=== PATIENT | female | born 1995 | race Caucasian/White ===

== ENCOUNTER 2019-05-24 15:18 | Observation (INO) | payer OTHER ==
[2019-05-24] MEDS ORDERED: Iopamidol-370 76% 500 ML 1 ML ONE (15:20)
[2019-05-24 16:06] LABS: Bilirubin Negative (Negative); Blood, Urine Negative (Negative); Clarity Clear (Clear); Glucose, Urine (Dipstick) Normal (Negative); Leukocyte 75 Leu/uL (Negative); Nitrite Negative (Negative); Protein, Urine (Dipstick) Negative (Neg-Trace); RBC/HPF 0-3 HPF (0-3); Squamous Epithelial 0-3 HPF (0-3); Urobilinogen Normal mg/dL (Less than 2)
[2019-05-24 16:07] LABS: Bacteria/HPF 1+ HPF (None Seen)
[2019-05-24 16:38] LABS: #Eosinphils 0.1 thou/uL (0.0-0.7); #Monocytes 0.6 thou/uL (0.11-0.59); %Basophils 0.5 % (0.0-1.0); %Eosinophils 0.8 % (0.0-10.0); %Lymphocytes 29.9 % (21.0-51.0); %Monocytes 8.4 % (0.0-10.0); %Neutrophils 60.5 % (42.0-75.0); Hemoglobin 11.8 g/dL (12.0-16.0); Mean Corpuscular HGB CONC 31.6 g/dL (32.0-36.0); Mean Corpuscular Hemoglobin 21.4 pg (27.0-31.0); Mean Corpuscular Volume 67.6 fL (78.0-98.0); Mean Platelet Volume 9.3 fL (7.4-10.4); Platelet Count 293 thou/uL (130-400); RBC Distribution Width 14.8 % (11.5-14.5); Red Blood Cell (RBC) Count 5.53 mill/uL (4.20-5.40); White Blood Cell (WBC) Count 6.6 thou/uL (4.8-10.8)
[2019-05-24 16:55] LABS: Hypochromia SLIGHT = 6-15 cells (100X) (0-5/hpf); MDiff Complete? YES; Microcytosis MODERATE=15-30 cells (100X) (0-5/hpf); Ovalocytes SLIGHT = 2-5 cells (100X) (0-1/hpf); Platelet Morphology Comment Appears Adequate; Polychromasia SLIGHT = 2-3 cells (100X) (0-2/hpf); Schistocytes SLIGHT = 2-5 cells (100X) (0-1/hpf); Target Cells SLIGHT = 2-5 cells (100X) (0-1/hpf); Tear Drops SLIGHT = 2-5 cells (100X) (0-1/hpf)
[2019-05-24 16:56] LABS: ALT (SGPT) 11 U/L (8-55); AST (SGOT) 9 U/L (5-34); Albumin 4.2 g/dL (3.5-5.0); Alkaline Phosphatase 58 U/L (40-110); Anion Gap 14 mmol/L (10-20); BUN (Urea Nitrogen) 8 mg/dL (7.0-18.7); Bilirubin, Total 0.2 mg/dL (0.2-1.2); Calc. Creatinine Clearance 0 mL/min (70-130); Carbon Dioxide 24 mmol/L (22-29); Chloride 108 mmol/L (98-107); Estimated GFR-MDRD 84; Globulin 3.2 g/dL (2.4-3.5); Glucose 106 mg/dL (70-105); Lipase 18 U/L (8-78); Potassium 4.1 mmol/L (3.5-5.1); Protein, Total 7.4 g/dL (6.0-8.3); Sodium 142 mmol/L (136-145)
[2019-05-24] MEDS ORDERED: Morphine 4 MG/ML VIAL ONE ×2 (18:15→20:36)
[2019-05-24] MEDS ORDERED: Ketorolac Tromethamine 30 MG/ML VIAL ONE (18:15)
[2019-05-24 18:48] LABS: Pregnancy Test - Urine (BHCG) Negative (Negative); Pregu Control Background? CLEAR/WHITE (CLR/WHITE); Pregu Control Bar Appear? YES (CONTROL BAR); Specific Gravity 1.022 (1.002-1.036)
--- NOTE | 2019-05-24 19:20 | CT ---
CT OF THE ABDOMEN AND PELVIS WITH IV CONTRAST INDICATION: Right lower quadrant abdominal pain COMPARISON: None FINDINGS: ABDOMEN: Lung bases: Clear Liver: No focal lesion. Gallbladder: Normal appearing. Pancreas: Normal. Adrenal glands: Normal. Spleen: Normal. Kidneys and ureters: Normal. No hydronephrosis. Vasculature: Normal. Lymph nodes:No lymphadenopathy. Free fluid in abdomen:No free fluid is evident. PELVIS: Small and large bowel: Normal Appendix:Enlarged measuring 9 mm with periappendiceal fat stranding. No drainable fluid collection is evident. Bladder: Normal. Rectal and perirectal soft tissues:Normal. Reproductive structures: Normal. Free fluid in pelvis: No free fluid is evident. Lymphadenopathy pelvis: No lymphadenopathy is evident. Osseous structures: No acute osseous abnormality. No destructive osteolytic or osteoblastic lesion i s identified. Soft tissues:Normal. IMPRESSION: 1. Findings of noncomplicated acute appendicitis.
[2019-05-24] MEDS ORDERED: Meropenem 2 GM in Sodium Chloride 0.9% 100 ML IVPB SCH (20:45)
[2019-05-24] MEDS: Sodium Chloride 0.9% 1,000 ML IV SCH (22:39)
[2019-05-24 23:06] VITALS: BMI 41.8
[2019-05-24] MEDS ORDERED: Ondansetron PF 4 MG/2 ML Vial SLOW IVP PRN (23:12)
[2019-05-24] MEDS: Morphine 2 MG/ML SYRINGE SLOW IVP PRN (23:19)
[2019-05-25] MEDS: Sodium Chloride 0.9% 1,000 ML IV SCH ×2 (03:04→09:34)
[2019-05-25] MEDS: Morphine 2 MG/ML SYRINGE SLOW IVP PRN ×3 (03:05→09:32)
[2019-05-25] MEDS ORDERED: MEROPENEM 1 GM/50 ML 1 GM in Premix Bag 1 BAG IVPB SCH (05:00)
[2019-05-25] MEDS ORDERED: Meropenem 1 GM in Sodium Chloride 0.9% 100 ML IVPB SCH (05:00)
[2019-05-25] MEDS ORDERED: Ondansetron PF 4 MG/2 ML Vial ONE (10:58)
[2019-05-25] MEDS ORDERED: Glycopyrrolate 0.2 MG/ML 5 ML SYRINGE ONE (10:58)
[2019-05-25] MEDS ORDERED: Lidocaine 1% PF 5 ML VIAL ONE (10:58)
[2019-05-25] MEDS ORDERED: Ketorolac Tromethamine 30 MG/ML VIAL ONE (10:58)
[2019-05-25] MEDS ORDERED: Succinylcholine Chloride 20 MG/ML 10 ml SYRINGE FS ONE (10:58)
[2019-05-25] MEDS ORDERED: Dexamethasone 20 MG/5 ML VIAL ONE (10:58)
[2019-05-25] MEDS ORDERED: Rocuronium Bromide 10 MG/ML (10ML VIAL) ONE (10:58)
[2019-05-25] MEDS ORDERED: Midazolam HCl 2 mg/2 ml Vial ONE (12:36)
[2019-05-25] MEDS ORDERED: Scopolamine 1.5 mg/72 hour Patch ONE (12:36)
[2019-05-25] MEDS ORDERED: HYDROmorphone 0.5 MG/0.5 ML SYRINGE ONE (12:37)
[2019-05-25] MEDS ORDERED: Fentanyl 100 MCG/2 ML VIAL ONE ×3 (12:37→14:53)
--- NOTE | 2019-05-25 12:38 | PDOC.GSCN ---
Surgery Consult: HPI - Consult details Date: 05/25/19 Time: 12:37 Reason for consult: abdominal pain (Acute appendicitis) History of present illness: 05/25/19 12:37 24yo female with abdominal pain. The pain is located in the RLQ and characterized as sharp and constant. Associated with nausea and one episode of emesis Saturday night. Denies diarrhea, but endorses subjective fever last evening. Surgery Consult: ROS - Review of Systems All systems: 10 systems reviewed and no additional complaints unless stated below. Surgery Consult: PMH Past Medical History: Bipolar disorder Thallasemia trait Past Surgical History: None - Past Family History Family history: reviewed and not pertinent - Past Social History Smoking Status: Smoker, status unknown Alcohol Use: rarely Drug Use History: none Living Situation: independent Surgery Consult: Exam - Vital signs Vital signs: Vital Signs - Most Recent Temp Pulse Resp BP Pulse Ox 98.7 F 71 16 100/65 97 05/25/19 11:06 05/25/19 11:06 05/25/19 11:06 05/25/19 11:06 05/25/19 11:06 - Physical Exam General: no distress, obese Eye: normal ocular movement, PERRL ENT: normal mucosa, normal nares Neck: no lymphadectomy, no masses, no genet distention Respiratory: clear to auscultation Abdomen: soft, tender (Focal TTP RLQ with no rebound tenderness or signs of peritonitis) Hernia: none Integumentary: no abnormal pigmentation, no growths Neurologic: normal coordination, normal sensation Musculoskeletal: normal gait, normal posture Psychiatric: memory intact, oriented to time, oriented to person, oriented to place Surgery Consult: Meds - Medications Medications: Current Medications Morphine Sulfate (Morphine) 2 mg SLOW IVP Q3H PRN PRN Reason: Pain Last Admin: 05/25/19 09:32 Dose: 2 mg Ondansetron HCl (Zofran) 4 mg SLOW IVP Q6H PRN PRN Reason: Nausea/Vomiting Last Admin: 05/25/19 09:33 Dose: 4 mg - Allergies Allergies/Adverse Reactions: Allergies Allergy/AdvReac Type Severity Reaction Status Date / Time cefdinir [From Omnicef] Allergy Verified 05/25/19 02:21 ferrous sulfate Allergy Verified 05/25/19 02:21 Penicillins Allergy Verified 05/25/19 02:21 Surgery Consult: Results - Labs Result Diagrams: 05/24/19 16:28 05/24/19 16:28 Lab results: Laboratory Results WBC 6.6 thou/uL (4.8-10.8) 05/24/19 16:28 RBC 5.53 mill/uL (4.20-5.40) H 05/24/19 16:28 Hgb 11.8 g/dL (12.0-16.0) L 05/24/19 16:28 Hct 37.4 % (36.0-47.0) 05/24/19 16:28 MCV 67.6 fL (78.0-98.0) L 05/24/19 16:28 MCH 21.4 pg (27.0-31.0) L 05/24/19 16: MCHC 31.6 g/dL (32.0-36.0) L 05/24/19 16: RDW 14.8 % (11.5-14.5) H 05/24/19 16: Plt Count 293 thou/uL (130-400) 05/24/19 16:28 MPV 9.3 fL (7.4-10.4) 05/24/19 16:28 Neutrophils % 60.5 % (42.0-75.0) 05/24/19 16:28 Neutrophils % (Manual) Not Reportable 05/24/19 16:28 Lymphocytes % 29.9 % (21.0-51.0) 05/24/19 16:28 Monocytes % 8.4 % (0.0-10.0) 05/24/19 16:28 Eosinophils % 0.8 % (0.0-10.0) 05/24/19 16:28 Basophils % 0.5 % (0.0-1.0) 05/24/19 16:28 Neutrophils # 4.0 thou/uL (1.40-6.50) 05/24/19 16:28 Lymphocytes # 2.0 thou/uL (1.20-3.40) 05/24/19 16:28 Monocytes # 0.6 thou/uL (0.11-0.59) H 05/24/19 16:28 Eosinophils # 0.1 thou/uL (0.0-0.7) 05/24/19 16:28 Basophils # 0.0 thou/uL (0.0-0.2) 05/24/19 16:28 Hypochromia SLIGHT = 6-15 cells (100X) (0-5/hpf) 05/24/19 16:28 Plt Morphology Comment Appears Adequate 05/24/19 16:28 Polychromasia SLIGHT = 2-3 cells (100X) (0-2/hpf) 05/24/19 16:28 Microcytosis MODERATE=15-30 cells (100X) (0-5/hpf) H 05/24/19 16:28 Target Cells SLIGHT = 2-5 cells (100X) (0-1/hpf) 05/24/19 16:28 Tear Drop Cells SLIGHT = 2-5 cells (100X) (0-1/hpf) 05/24/19 16:28 Ovalocytes SLIGHT = 2-5 cells (100X) (0-1/hpf) 05/24/19 16:28 Schistocytes SLIGHT = 2-5 cells (100X) (0-1/hpf) 05/24/19 16:28 Sodium 142 mmol/L (136-145) 05/24/19 16:28 Potassium 4.1 mmol/L (3.5-5.1) 05/24/19 16:28 Chloride 108 mmol/L (98-107) H 05/24/19 16:28 Carbon Dioxide 24 mmol/L (22-29) 05/24/19 16:28 Anion Gap 14 mmol/L (10-20) 05/24/19 16:28 BUN 8 mg/dL (7.0-18.7) 05/24/19 16:28 Creatinine 0.84 mg/dL (0.6-1.1) 05/24/19 16:28 Estimated GFR (MDRD) 84 05/24/19 16:28 Glucose 106 mg/dL (70-105) H 05/24/19 16:28 Calcium 9.0 mg/dL (7.8-10.44) 05/24/19 16:28 Total Bilirubin 0.2 mg/dL (0.2-1.2) 05/24/19 16:28 AST 9 U/L (5-34) 05/24/19 16:28 ALT 11 U/L (8-55) 05/24/19 16:28 Alkaline Phosphatase 58 U/L (40-110) 05/24/19 16:28 Serum Total Protein 7.4 g/dL (6.0-8.3) 05/24/19 16:28 Albumin 4.2 g/dL (3.5-5.0) 05/24/19 16:28 Globulin 3.2 g/dL (2.4-3.5) 05/24/19 16:28 Albumin/Globulin Ratio 1.3 g/dL (1.2-2.2) 05/24/19 16:28 Lipase 18 U/L (8-78) 05/24/19 16:28 Urine Color Light-Yellow (Yellow) 05/24/19 15:27 Urine Clarity Clear (Clear) 05/24/19 15:27 Urine pH 7.0 (5.0-9.0) 05/24/19 15:27 Ur Specific [place] 1.022 (1.002-1.036) 05/24/19 18:43 Urine Protein Negative mg/dL (Neg-Trace) 05/24/19 15:27 Urine Glucose (UA) Normal mg/dL (Negative) 05/24/19 15:27 Urine Ketones Negative mg/dL (Negative) 05/24/19 15:27 Urine Blood Negative (Negative) 05/24/19 15:27 Urine Nitrite Negative (Negative) 05/24/19 15:27 Urine Bilirubin Negative (Negative) 05/24/19 15:27 Urine Urobilinogen Normal mg/dL (Less than 2) 05/24/19 15:27 Ur Leukocyte Esterase 75 Loren/uL (Negative) A 05/24/19 15:27 Urine RBC 0-3 HPF (0-3) 05/24/19 15:27 Urine WBC 11-20 HPF (0-3) A 05/24/19 15:27 Ur Squamous Epith Cells 0-3 HPF (0-3) 05/24/19 15:27 Urine Bacteria 1+ HPF (None Seen) A 05/24/19 15:27 Urine Test Negative (Negative) 05/24/19 18:43 - Radiology Interpretation CT scan - abdomen Additional comments: Demonstrates a dilated appendix with periappendiceal stranding c/w uncomplicated acute appendicitis. Surgery Consult: A/P - Problem (1) Acute appendicitis Current Visit: Yes Code(s): K35.80 - UNSPECIFIED ACUTE APPENDICITIS Status: Acute Qualifiers: Acute appendicitis type: with localized peritonitis Appendicitis gangrene presence: without gangrene Appendicitis perforation presence: without perforation Appendicitis abscess presence: without abscess Qualified Code(s) : K35.30 - Acute appendicitis with localized peritonitis, without perforation or gangrene - Plan Plan: Plan for laparoscopic appendectomy today. The risks and benefits have been discussed and informed consent obtained. Likely dc home this evening if dc criteria are met.
[2019-05-25] MEDS ORDERED: Acetaminophen/Codeine 30-300mg Tablet PO PRN (12:43)
[2019-05-25] MEDS ORDERED: Promethazine HCl 25 MG/ML VIAL SLOW IVP PRN (13:44)
[2019-05-25] MEDS ORDERED: Meperidine HCl/PF 25 MG/ML VIAL SLOW IVP PRN (13:44)
[2019-05-25] MEDS ORDERED: HYDROmorphone 2 MG/ML VIAL SLOW IVP PRN (13:44)
[2019-05-25] MEDS ORDERED: Bupivacaine 0.25% HCL 30 ML VIAL ONE (14:10)
--- NOTE | 2019-05-25 15:18 | OP ---
DATE OF PROCEDURE: 05/25/2019 PREOPERATIVE DIAGNOSIS: Acute appendicitis. POSTOPERATIVE DIAGNOSIS: Acute appendicitis. PROCEDURE PERFORMED: Laparoscopic appendectomy. INDICATION FOR PROCEDURE: This is a 24-year-old female with 1-day history of right lower quadrant pain. Her emergency department workup to include computed tomography of the abdomen, was consistent with acute appendicitis. After discussion of the relative risks and benefits of laparoscopic appendectomy, the patient agreed to proceed with surgery. PROCEDURE IN DETAIL: The patient was brought to the operating room and positioned supine on the operating room table. After induction of general, endotracheal anesthesia, the patient was prepared and draped in the usual fashion. Prior to beginning the procedure, a complete time-out was performed with all members of the operative team being present and in agreement. Access to the abdomen was obtained in the left upper quadrant using an optical trocar under direct visualization. The abdomen was insufflated and examined. There was inflammation noted in the right lower quadrant adjacent to the appendix. Additional trocars were placed under direct visualization. The appendix and the cecum were mobilized medially using blunt dissection with minimal electrocautery. The base of the appendix was identified with the confluence of the tenia. A window was made at the base of the appendix and the appendix was transected with a single fiber blue staple load. The mesoappendix was dissected and divided using a single fire of a white staple load. The specimen was placed in a specimen retrieval bag. The right lower quadrant was examined for hemostasis and hemostasis was achieved. The specimen was removed. The fascia was closed with a 0 Vicryl tie utilizing a Suture Passer. The skin was closed with 4-0 Monocryl and dressed with skin adhesive dressing. At conclusion of the case, all sponge and instrument counts were correct. SPECIMENS: Appendix. ESTIMATED BLOOD LOSS: Minimal. COMPLICATIONS: None. DISPOSITION: The patient was transported to the postoperative recovery unit to be returned to the floor after criteria were met. Job ID: [id number]
[2019-05-25 18:26] VITALS: BP 128/85; TEMP 97.7
[2019-05-26] MEDS ORDERED: Loratadine 10 MG TAB PO SCH (09:00)
[2019-05-26] MEDS ORDERED: LEVONORGESTREL ETHIN ESTRADIOL PO SCH (09:00)
--- NOTE | 2019-05-26 14:13 | DIS ---
DATE OF ADMISSION: 05/24/2019 DATE OF DISCHARGE: 05/25/2019 ADMISSION DIAGNOSIS: Acute appendicitis. DISCHARGE DIAGNOSIS: Acute appendicitis. PROCEDURES: Laparoscopic appendectomy. HOSPITAL COURSE: The patient presented to the emergency department on May 24, 2019 with right lower quadrant pain. Her emergency department workup was consistent with acute appendicitis. She was placed on observation and taken to the operating room the following day, where she underwent laparoscopic appendectomy. She tolerated the procedure well and was returned to the floor. While on the floor, her diet was advanced to regular, which she tolerated. Her pain was well controlled with oral analgesia only. She was ambulating independently and voiding spontaneously and was appropriate for discharge. DISCHARGE DISPOSITION: Home. CONDITION: Good. DISCHARGE MEDICATIONS: 1. Tylenol No. 3 one tablets p.o. every 6 hours as needed for pain. 2. Fexofenadine hydrochloride 100 mg p.o. daily (home medication). 3. control pills. 4. Sertraline 50 mg daily (home medication). Job ID: [id number]
== END 2019-05-25 18:50 | disposition home or self-care (01) ==
LOC: ERS 15:18 → SURG A 20:05 → INTOOBSV 20:05
PROVIDERS: ADMIT Surgery; ATTEND Surgery
PROC: 0DTJ4ZZ Resection of Appendix, Percutaneous Endoscopic Approach (ICD-10-PCS; principal; 2019-05-25)
DX: K35.30 Acute appendicitis with localized peritonitis, without perforation or gangrene (principal); F41.9 Anxiety disorder, unspecified; G89.29 Other chronic pain; M54.9 Dorsalgia, unspecified; F31.9 Bipolar disorder, unspecified; F17.200 Nicotine dependence, unspecified, uncomplicated; D56.3 Thalassemia minor; E66.9 Obesity, unspecified; Z68.41 Body mass index [BMI] 40.0-44.9, adult; Z79.899 Other long term (current) drug therapy; Z88.0 Allergy status to penicillin; Z88.1 Allergy status to other antibiotic agents; Z88.8 Allergy status to other drugs, medicaments and biological substances
CPT/HCPCS: 36415; 74177; 80053; 81003; 81015; 81025; 83690; 85025; 88304; 96361; 96365; 96375; 96376; J1100; J1170; J1885; J2001; J2185; J2250; J2270; J2405; J3010; J3490; Q9967; S0020

== ENCOUNTER → 2020-03-18 | Emergency (ER) | payer OTHER | LOC: ERS 19:21 | DX: Z53.21 Procedure and treatment not carried out due to patient leaving prior to being seen by health care provider (principal) ==

== ENCOUNTER 2021-04-12 10:38 | Emergency (ER) | payer OTHER ==
[2021-04-12 11:11] LABS: #Eosinphils 0.1 thou/uL (0.0-0.7); #Lymphocytes 2.3 thou/uL (1.20-3.40); #Monocytes 0.4 thou/uL (0.11-0.59); #Neutrophils 3.1 thou/uL (1.40-6.50); %Basophils 0.5 % (0.0-1.0); %Eosinophils 0.9 % (0.0-10.0); %Lymphocytes 39.8 % (21.0-51.0); %Monocytes 6.1 % (0.0-10.0); %Neutrophils 52.8 % (42.0-75.0); Hemoglobin 12.7 g/dL (12.0-16.0); Mean Corpuscular HGB CONC 32.9 g/dL (32.0-36.0); Mean Corpuscular Hemoglobin 23.2 pg (27.0-31.0); Mean Corpuscular Volume 70.5 fL (78.0-98.0); Mean Platelet Volume 7.5 fL (7.4-10.4); Platelet Count 282 thou/uL (130-400); RBC Distribution Width 13.7 % (11.5-14.5); Red Blood Cell (RBC) Count 5.47 mill/uL (4.20-5.40); White Blood Cell (WBC) Count 5.8 thou/uL (4.8-10.8)
[2021-04-12 11:27] LABS: ALT (SGPT) 17 U/L (8-55); AST (SGOT) 16 U/L (5-34); Albumin 4.3 g/dL (3.5-5.0); Alkaline Phosphatase 71 U/L (40-110); Anion Gap 12 mmol/L (10-20); BUN (Urea Nitrogen) 10 mg/dL (7.0-18.7); Bilirubin, Total 0.3 mg/dL (0.2-1.2); Calc. Creatinine Clearance 0 mL/min (70-130); Calcium 9.9 mg/dL (7.8-10.44); Carbon Dioxide 23 mmol/L (22-29); Chloride 108 mmol/L (98-107); Globulin 3.4 g/dL (2.4-3.5); Glucose 95 mg/dL (70-105); Lipase 41 U/L (8-78); Potassium 4.2 mmol/L (3.5-5.1); Protein, Total 7.7 g/dL (6.0-8.3); Sodium 139 mmol/L (136-145)
[2021-04-12 11:36] LABS: MDiff Complete? YES; Microcytosis MODERATE=15-30 cells (100X) (0-5/hpf); Platelet Morphology Comment Appears Adequate; Polychromasia SLIGHT = 2-3 cells (100X) (0-2/hpf)
[2021-04-12] MEDS ORDERED: Ondansetron PF 4 MG/2 ML Vial ONE (12:39)
[2021-04-12] MEDS ORDERED: Morphine 4 MG/ML VIAL ONE (12:39)
[2021-04-12 14:46] LABS: Bilirubin Negative (Negative); Blood, Urine Negative (Negative); Clarity Clear (Clear); Glucose, Urine (Dipstick) Normal (Negative); Ketone, Urine Negative (Negative); Leukocyte Negative Leu/uL (Negative); Nitrite Negative (Negative); Protein, Urine (Dipstick) Negative (Neg-Trace); Specific Gravity, Urine 1.019 (1.002-1.036); Urobilinogen Normal mg/dL (Less than 2)
[2021-04-12 14:52] LABS: Pregnancy Test - Urine (BHCG) Negative (Negative); Pregu Control Background? CLEAR/WHITE (CLR/WHITE); Pregu Control Bar Appear? YES (CONTROL BAR); Specific Gravity 1.019 (1.002-1.036)
== END 2021-04-12 16:06 | disposition home or self-care (01) ==
LOC: ERS 10:38
DX: R10.11 Right upper quadrant pain (principal); D50.0 Iron deficiency anemia secondary to blood loss (chronic); G43.909 Migraine, unspecified, not intractable, without status migrainosus
CPT/HCPCS: 36415; 74177; 76705; 80053; 81003; 81025; 83690; 85025; 96374; 96375; J2270; J2405

== ENCOUNTER 2021-04-26 20:46 | Emergency (ER) | payer OTHER ==
[2021-04-26] MEDS ORDERED: Ketorolac Tromethamine 30 MG/ML VIAL ONE (22:48)
== END 2021-04-26 22:52 | disposition home or self-care (01) ==
LOC: ERS 20:46
DX: S39.012A Strain of muscle, fascia and tendon of lower back, initial encounter (principal); G43.909 Migraine, unspecified, not intractable, without status migrainosus; D50.9 Iron deficiency anemia, unspecified; Z79.899 Other long term (current) drug therapy; W01.0XXA Fall on same level from slipping, tripping and stumbling without subsequent striking against object, initial encounter
CPT/HCPCS: 72072; 72100; 72125; 96372; J1885

== ENCOUNTER 2021-08-21 10:23 | Outpatient (CLI) | payer BC | END 2021-08-21 10:24 | disposition home or self-care (01) | LOC: BICULT 10:23 | PROVIDERS: ATTEND Family Medicine | DX: E28.2 Polycystic ovarian syndrome (principal) | CPT/HCPCS: 76856 ==

== ENCOUNTER 2023-03-26 07:15 | Emergency (ER) | payer BC ==
[2023-03-26] MEDS ORDERED: Ondansetron PF 4 MG/2 ML Vial ONE (08:01)
[2023-03-26] MEDS ORDERED: Famotidine/PF 20 mg/2ml Vial ONE (08:02)
[2023-03-26 08:05] LABS: #Monocytes 0.6 thou/uL (0.11-0.59); #Neutrophils 4.9 thou/uL (1.40-6.50); %Basophils 0.3 % (0.0-1.0); %Eosinophils 0.4 % (0.0-10.0); %Lymphocytes 37.3 % (21.0-51.0); %Monocytes 7.1 % (0.0-10.0); %Neutrophils 54.8 % (42.0-75.0); Hematocrit 37.4 % (36.0-47.0); Hemoglobin 11.5 g/dL (12.0-16.0); Mean Corpuscular HGB CONC 30.7 g/dL (32.0-36.0); Mean Corpuscular Hemoglobin 21.3 pg (27.0-31.0); Mean Corpuscular Volume 69.4 fl (78.0-98.0); Mean Platelet Volume 9.7 fL (7.4-10.4); Platelet Count 338 10x3/uL (130-400); RBC Distribution Width 16.3 % (11.5-14.5); Red Blood Cell (RBC) Count 5.39 mill/uL (4.20-5.40)
[2023-03-26 08:14] LABS: Bacteria/HPF None Seen HPF (None Seen); Bilirubin Negative (Negative); Blood, Urine Negative (Negative); CAUTI Indications for Culture Fever or rigors; Clarity Clear (Clear); Glucose, Urine (Dipstick) Normal (Negative); Ketone, Urine Negative (Negative); Leukocyte 250 Leu/uL (Negative); Nitrite Negative (Negative); Protein, Urine (Dipstick) Negative (Neg-Trace); RBC/HPF None Seen HPF (0-3); Squamous Epithelial 0-3 HPF (0-3); Urobilinogen Normal mg/dL (Less than 2); WBC/HPF 0-3 HPF (0-3)
[2023-03-26 08:15] LABS: BHCG - Serum Negative (NEGATIVE); Pregs Control Background? CLEAR/WHITE (CLR/WHITE); Pregs Control Bar Appear? YES (CONTROL BAR); Urine Culture Reflex No No
[2023-03-26 08:46] LABS: ALT (SGPT) 13 U/L (8-55); AST (SGOT) 16 U/L (5-34); Albumin 4.3 g/dL (3.5-5.0); Alkaline Phosphatase 61 U/L (40-110); Anion Gap 14 mmol/L (10-20); BUN (Urea Nitrogen) 8 mg/dL (7.0-18.7); Bilirubin, Total 0.2 mg/dL (0.2-1.2); Calc. Creatinine Clearance 0 mL/min (70-130); Carbon Dioxide 23 mmol/L (22-29); Chloride 106 mmol/L (98-107); Estimated GFR 107; Globulin 3.5 g/dL (2.4-3.5); Glucose 88 mg/dL (70-105); Lipase 25 U/L (8-78); Protein, Total 7.8 g/dL (6.0-8.3); Sodium 139 mmol/L (136-145)
[2023-03-26] MEDS ORDERED: Ketorolac Tromethamine 30 MG/ML VIAL ONE (09:11)
[2023-03-26 09:33] LABS: CellaVision Operator ID LAB.GE; Elliptocytes SLIGHT = 2-5 cells HPF (0-1); Ovalocytes SLIGHT = 2-5 cells HPF (0-1); Platelet Adequacy Comment Platelets Normal; Polychromasia SLIGHT = 2-3 cells HPF (0-2)
== END 2023-03-26 09:44 | disposition home or self-care (01) ==
LOC: EEVIPCON 07:15 → ERS 07:15
DX: R10.13 Epigastric pain (principal)
CPT/HCPCS: 76705; 80053; 81001; 83690; 84703; 85025; 93005; 96374; 96375; J1885; J2405; S0028